=== PATIENT | female | born 1995 ===

== ENCOUNTER 2017-06-01 00:37 | Emergency (ER) | payer MEDICAID, OTHER ==
[2017-06-01 01:05] VITALS: BP 117/68; PULSE 76; RESP 16; TEMP 98; O2SAT 98
[2017-06-01] MEDS ORDERED: Amoxicillin-Clav 875-125 mg Tab PO STA (01:37)
[2017-06-01] MEDS ORDERED: Amoxicillin-Clav 875-125 mg Tab PO ONE (01:50)
--- NOTE | 2017-06-01 02:32 | ED PDOC ---
HPI: Dental Pain/Injury Time Seen by Provider: 06/01/17 01:25 Chief Complaint (Nursing): Dental Pain Chief Complaint (Provider): gum pain History Per: Patient History/Exam Limitations: no limitations Onset/Duration Of Symptoms: Days (6) Current Symptoms Are (Timing): Still Present Additional History Per: Patient Additional Complaint(s): 22 y/o female presents with left-sided mouth/gum goncalves x 6 days. Patient states pain is located where her wisdom teeth were (removed 4 years ago). Patient seen at [facility] ED 2 days ago and prescribed Ibuprofen and Penicillin VK but patient states pain/swelling getting worse. Denies fever, difficulty speaking/ swallowing. Past Medical History Reviewed: Historical Data, Nursing Documentation, Vital Signs Vital Signs: Last Vital Signs Temp 98 F 06/01/17 00:56 Pulse 76 06/01/17 00:56 Resp 16 06/01/17 00:56 BP 117/68 06/01/17 00:56 Pulse Ox 98 06/01/17 00:56 - Medical History PMH: No Chronic Diseases - Surgical History Surgical History: No Surg Hx - Family History Family History: States: No Known Family Hx - Home Medications Home Medications: Ambulatory Orders Medication Instructions Recorded Amoxicillin/Clavulanate [Augmentin 1 tab PO Q12 #13 tab 06/01/17 875 MG-125 MG] traMADol [Ultram] 50 mg PO Q8 PRN #10 tab 06/01/17 - Allergies Allergies/Adverse Reactions: Allergies Allergy/AdvReac Type Severity Reaction Status Date / Time No Known Allergies Allergy Verified 06/01/17 00:56 Review of Systems ROS Statement: Except As Marked, All Systems Reviewed And Found Negative ENT: Positive for: Mouth Pain Physical Exam - Reviewed Nursing Documentation Reviewed: Yes Vital Signs Reviewed: Yes - Physical Exam Appears: Positive for: Well, Non-toxic, No Acute Distress Head Exam: Positive for: ATRAUMATIC, NORMAL INSPECTION, NORMOCEPHALIC Skin: Positive for: Normal Color ENT: Positive for: Other (left lower gingiva of previous wisdom tooth space erythematous, soft, swollen, tender to touch. No drainage. No facial swelling/ erythema) Neck: Positive for: Normal, Painless ROM - ECG O2 Sat by Pulse Oximetry: 98 - Progress ED Course And Treament: Toradol IM, tramadol PO, augmentin PO Patient educated on findings, advised to f/up with Dentist tm for eval of infection Rx Tramadol, Augmentin provided (with instructions to take in place of Penicillin) Return precautions given. Disposition - Clinical Impression Clinical Impression: Pain of gingiva - Patient ED Disposition Is Patient to be Admitted: No Counseled Patient/Family Regarding: Studies Performed, Diagnosis, Need For Followup, Rx Given - Disposition Referrals: Nickie Mcclendon [Primary Care Provider] - Disposition: Routine/Home Disposition Time: 02:33 Condition: IMPROVED Prescriptions: Amoxicillin/Clavulanate [Augmentin 875 MG-125 MG] 1 tab PO Q12 #13 tab traMADol [Ultram] 50 mg PO Q8 PRN #10 tab PRN Reason: Pain, Severe (8-10) Instructions: Gingivitis (ED) Forms: [facility] (Turkish)
== END 2017-06-01 03:32 | disposition home or self-care (01) ==
LOC: H.ER 00:37
DX: K08.89 Other specified disorders of teeth and supporting structures (principal)
CPT/HCPCS: 96372; 99281; J1885